=== PATIENT | male | born 1955 | race Caucasian/White ===

== ENCOUNTER → 2025-10-25 06:43 | Outpatient (REF) | payer MEDICARE, OTHER, SELFPAY | LOC: RAD 06:43 | PROVIDERS: ATTENDING PHYSICIAN Specialist; FAMILY PHYSICIAN Family Medicine | DX: E87.5 Hyperkalemia (principal); Z86.39 Personal history of other endocrine, nutritional and metabolic disease; E78.00 Pure hypercholesterolemia, unspecified | CPT/HCPCS: 76770 ==